=== PATIENT | male | born 1950 | race African-American/Black ===

== ENCOUNTER 2018-12-01 04:37 | Emergency (ER) | payer MEDICARE ==
[~2018-12-01] VITALS: Ht 185.4 cm; Wt 79.0 kg
--- NOTE | 2018-12-01 04:45 | NUR ---
pt bib remsa with nausea and vomiting, and abdominal pain with diarrhea that started this evening. pt also reports left-sided cp. 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 vss. pt educated on er process and poc and verbalizes understanding. call light is within reach. awaiting erp at this time.
[2018-12-01] MEDS ORDERED: CARV12.52 PO (04:52)
[2018-12-01] MEDS ORDERED: FURO20TA3 PO (04:53)
[2018-12-01] MEDS ORDERED: MORPHINE SULFATE 4 MG/ML, 1ML ONE (04:59)
[2018-12-01] MEDS ORDERED: METOCLOPRAMIDE 5 MG/ML, 2ML ONE (04:59)
[2018-12-01] MEDS ORDERED: MORPHINE SULFATE 4 MG/ML, 1ML IVPush PRN (05:00)
[2018-12-01] MEDS ORDERED: SODIUM CHLORIDE FLUSH 10ML SYR IVF ONE (05:00)
[2018-12-01] MEDS ORDERED: METOCLOPRAMIDE 5 MG/ML, 2ML IVPush ONE (05:00)
[2018-12-01 05:44] LABS: BASOPHILS % (AUTO) 0 % (0-1); EOSINOPHILS # (AUTO) 0.14 x10^3/uL (0-0.4); EOSINOPHILS % (AUTO) 3 % (1-7); LYMPHOCYTES # (AUTO) 0.48 x10^3/uL (1-3.4); LYMPHOCYTES % (AUTO) 9 % (22-44); MD NO; MEAN CORPUSCULAR HEMOGLOBIN 34.3 pg (27.5-34.5); MEAN CORPUSCULAR HGB CONC 34.5 g/dL (33.2-36.2); MEAN CORPUSCULAR VOLUME 99.3 fL (81-97); MEAN PLATELET VOLUME 7.9 fL (7.4-10.4); MONOCYTES # (AUTO) 0.13 x10^3/uL (0.2-0.8); MONOCYTES % (AUTO) 3 % (2-9); NEUTROPHILS # (AUTO) 4.42 x10^3/uL (1.8-6.8); NEUTROPHILS % (AUTO) 85 % (42-75); PLATELET COUNT 246 x10^3/uL (130-400); RED BLOOD COUNT 4.74 x10^6/uL (4.38-5.82); RED CELL DISTRIBUTION WIDTH 13.1 % (9.4-14.8)
--- NOTE | 2018-12-01 05:45 | NUR ---
pt medicated per mar.
[2018-12-01 05:52] LABS: ALANINE AMINOTRANSFERASE 33 U/L (12-78); ALBUMIN 3.8 g/dL (3.4-5.0); ANION GAP 8 mmol/L (5-15); CALCIUM 8.3 mg/dL (8.5-10.1); CHLORIDE 113 mmol/L (98-107); CREATININE 1.04 mg/dL (0.7-1.3)
[2018-12-01 05:57] LABS: ALKALINE PHOSPHATASE 99 U/L (45-117); BILIRUBIN,TOTAL 1.5 mg/dL (0.2-1.0); TOTAL PROTEIN 7.3 g/dL (6.4-8.2); TROPONIN I < 0.015 ng/mL (0.000-0.045)
--- NOTE | 2018-12-01 06:23 | NUR ---
pt en route to get pt. pt reports feeling better and tolerating sips of po fluids.
[2018-12-01 06:39] VITALS: BP 132/88
--- NOTE | 2018-12-01 06:56 | NUR ---
received report form [facility]. pt awaiting arrival for DC home, upright on gurney awake & calm, responds approp to staff, NAD, comfort measures provided, call light within reach.
--- NOTE | 2018-12-01 06:57 | NUR ---
pt d/c with d/c summary. all questions answered. pt awaiting ride from at this time. report of pt to zach reynolds who is assuming care of pt. all questions answered to new RN.
== END 2018-12-01 07:21 | disposition home or self-care (01) ==
LOC: ED 05:48
DX: A08.4 Viral intestinal infection, unspecified (principal); I11.0 Hypertensive heart disease with heart failure; I50.9 Heart failure, unspecified; J44.9 Chronic obstructive pulmonary disease, unspecified; Z87.891 Personal history of nicotine dependence
CPT/HCPCS: 36415; 71045; 80053; 83605; 83690; 83880; 84484; 85025; 93005; 96374; 96375; 99284; J2765

== ENCOUNTER → 2018-12-28 | Outpatient (CLI) | payer MEDICARE ==
[~2018-12-28] MED LIST: CARV12.52 PO; FURO20TA3 PO
== END | disposition home or self-care (01) ==
LOC: CFH 15:34
PROVIDERS: ATTEND Registered Nurse
DX: J43.9 Emphysema, unspecified (principal); J96.11 Chronic respiratory failure with hypoxia; Z85.118 Personal history of other malignant neoplasm of bronchus and lung; Z87.891 Personal history of nicotine dependence
CPT/HCPCS: 71250

== ENCOUNTER → 2019-02-11 | Outpatient (CLI) | payer MEDICARE | END | disposition home or self-care (01) | LOC: CVU 07:22 | PROVIDERS: ATTEND Internal Medicine Cardiovascular Disease | DX: I08.8 Other rheumatic multiple valve diseases (principal); I11.9 Hypertensive heart disease without heart failure; R09.89 Other specified symptoms and signs involving the circulatory and respiratory systems; J44.9 Chronic obstructive pulmonary disease, unspecified; I27.21 Secondary pulmonary arterial hypertension; Z87.891 Personal history of nicotine dependence; Z99.81 Dependence on supplemental oxygen | CPT/HCPCS: 0399T; 93306; 93880 ==